=== PATIENT | male | born 1965 | race Caucasian/White ===

== ENCOUNTER 2017-12-10 12:37 | Emergency (ER) | payer OTHER ==
[~2017-12-10] VITALS: Ht 185.4 cm; Wt 96.2 kg
[2017-12-10] MEDS ORDERED: VIBRAMYCIN100 MG PO (13:05)
[2017-12-15 11:05] LABS: IGG P18 AB Present (.); IGG P23 AB Present (.); IGG P28 AB Absent (.); IGG P30 AB Absent (.); IGG P39 AB Absent (.); IGG P41 AB Present (.); IGG P45 AB Absent (.); IGG P58 AB Absent (.); IGG P63 AB Absent (.); IGG P66 AB Absent (.); IGM P23 AB Present (.); IGM P39 AB Absent (.); IGM P41 AB Absent (.); LYME IGG WB INTERPRETATION Negative (.); LYME IGM WB INTERPRETATION Negative (.)
== END 2017-12-10 13:18 | disposition home or self-care (01) ==
LOC: ED 12:37
PROVIDERS: Nurse Practitioner Family
DX: L51.9 Erythema multiforme, unspecified (principal)

== ENCOUNTER → 2017-12-28 | Outpatient (CLI) | payer OTHER ==
[~2017-12-28] MED LIST: VIBRAMYCIN100 MG PO
== END | disposition home or self-care (01) ==
LOC: RESCLI 02:01
DX: Z00.01 Encounter for general adult medical examination with abnormal findings (principal); R03.0 Elevated blood-pressure reading, without diagnosis of hypertension; Z53.20 Procedure and treatment not carried out because of patient's decision for unspecified reasons; Z88.8 Allergy status to other drugs, medicaments and biological substances

== ENCOUNTER 2019-08-20 14:16 | Emergency (ER) | payer OTHER ==
[~2019-08-20] VITALS: Ht 185.4 cm; Wt 96.2 kg
== END 2019-08-20 18:14 | disposition short-term general hospital (02) ==
LOC: ED 14:16
DX: S62.632B Displaced fracture of distal phalanx of right middle finger, initial encounter for open fracture (principal); M79.89 Other specified soft tissue disorders; Z79.899 Other long term (current) drug therapy; W23.0XXA Caught, crushed, jammed, or pinched between moving objects, initial encounter; Y93.89 Activity, other specified; Y92.89 Other specified places as the place of occurrence of the external cause; Y99.8 Other external cause status